=== PATIENT | male | born 1965 | race African-American/Black ===

== ENCOUNTER 2019-09-21 12:15 | Emergency (ER) | payer MEDICAID, OTHER ==
[~2019-09-21] VITALS: Ht 175.3 cm; Wt 86.3 kg
[2019-09-21 12:57] VITALS: BP 130/59
[2019-09-21] MEDS ORDERED: ACETAMINOPHEN 325MG TABLET PO ONE (15:00)
== END 2019-09-21 15:28 | disposition home or self-care (01) ==
LOC: ER 14:46
DX: L02.11 Cutaneous abscess of neck (principal); J45.909 Unspecified asthma, uncomplicated
CPT/HCPCS: 99282

== ENCOUNTER 2022-09-01 11:47 | Emergency (ER) | payer MEDICAID ==
[~2022-09-01] VITALS: Ht 175.3 cm; Wt 82.0 kg
[2022-09-01 11:49] VITALS: BP 148/89
== END 2022-09-01 13:53 | disposition home or self-care (01) ==
LOC: ER 11:49
DX: R10.13 Epigastric pain (principal); J45.909 Unspecified asthma, uncomplicated
CPT/HCPCS: 99283

== ENCOUNTER 2022-11-25 23:47 | Emergency (ER) | payer MEDICAID, OTHER ==
[~2022-11-25] VITALS: Ht 175.3 cm; Wt 74.6 kg
[2022-11-26] MEDS ORDERED: SULFAMETHOXAZOLE/TRIMETHOPRIM 800/160MG TABLET PO ONE (03:45)
[2022-11-26] MEDS ORDERED: CEPHALEXIN 250MG CAPSULE PO ONE (03:45)
[2022-11-26] MEDS ORDERED: LIDOCAINE HCL/PF 1% 10 MG/ML 5ML VIAL INFIL ONE (03:45)
[2022-11-26] MEDS ORDERED: IBUPROFEN 600MG TABLET PO ONE (03:45)
[2022-11-26] MEDS ORDERED: TETANUS, DIPHTHERIA, PERTUSSIS VAC/PF 0.5ML (>10YR OLD) IM ONE (03:45)
[2022-11-26] MEDS ORDERED: SULF1TAB48 MT (03:53)
[2022-11-26] MEDS ORDERED: CEPH500C2 MT (03:53)
[2022-11-26] MEDS ORDERED: IBUP-2029 MT (03:53)
[2022-11-26 04:29] VITALS: BP 120/76
== END 2022-11-26 04:32 | disposition home or self-care (01) ==
LOC: ER 23:47
DX: L02.01 Cutaneous abscess of face (principal); J45.909 Unspecified asthma, uncomplicated; I49.9 Cardiac arrhythmia, unspecified
CPT/HCPCS: 10060; 90471; 90715; 93005; 99284; Z7610

== ENCOUNTER 2023-06-27 03:00 | Emergency (ER) | payer MEDICAID, OTHER ==
[~2023-06-27] VITALS: Ht 175.3 cm; Wt 78.0 kg
[~2023-06-27 03:00] MED LIST: CEPH500C2 MT; IBUP-2029 MT; SULF1TAB48 MT
[2023-06-27] MEDS ORDERED: PREDNISONE 20MG TABLET PO STA (03:09)
[2023-06-27] MEDS ORDERED: IPRATROPIUM BROMIDE (0.02%) 0.5MG/2.5ML NEB HHN STA (03:09)
[2023-06-27] MEDS ORDERED: ALBUTEROL (0.083%) 2.5MG/3ML NEB HHN STA (03:09)
[2023-06-27 03:30] VITALS: PULSE 80; RESP 29; O2SAT 99
[2023-06-27] MEDS ORDERED: P20 MT (04:30)
[2023-06-27] MEDS ORDERED: ALBU18HF2 IH (04:30)
[2023-06-27] MEDS ORDERED: ALBU2.5V13 NEB (04:30)
[2023-06-27 04:35] VITALS: BP 122/82; PULSE 72; RESP 16; TEMP 98.8
== END 2023-06-27 04:38 | disposition home or self-care (01) ==
LOC: ER 03:00
DX: J45.901 Unspecified asthma with (acute) exacerbation (principal); F17.290 Nicotine dependence, other tobacco product, uncomplicated; Z91.013 Allergy to seafood
CPT/HCPCS: 71045; 94640; 99283; 99406; J7512; Z7610 ×3

== ENCOUNTER 2025-05-29 09:22 | Emergency (ER) | payer MEDICAID ==
[~2025-05-29] VITALS: Ht 175.3 cm; Wt 78.0 kg
[~2025-05-29 09:22] MED LIST changes: +ALBU18HF2 IH; +ALBU2.5V13 NEB; +IBUP-1455 MT; -IBUP-2029 MT; +P20 MT
[2025-05-29 09:37] VITALS: TEMP 36.7; O2SAT 98
[2025-05-29] MEDS ORDERED: CEPH500C2 MT (10:09)
[2025-05-29] MEDS ORDERED: SULF1TAB48 MT (10:09)
[2025-05-29 10:20] VITALS: BP 118/92; PULSE 79; RESP 14; O2SAT 100
[2025-07-10] MEDS ORDERED: P20 MT (08:17)
[2025-07-10] MEDS ORDERED: ALBU18HF2 IH (08:17)
[2025-07-10] MEDS ORDERED: ALBU2.5V13 NEB (08:17)
[2025-07-10] MEDS ORDERED: FLUT1DIS3 INH (08:17)
== END 2025-05-29 10:32 | disposition home or self-care (01) ==
LOC: ER 09:22
DX: L73.9 Follicular disorder, unspecified (principal); J45.909 Unspecified asthma, uncomplicated; Z91.013 Allergy to seafood
CPT/HCPCS: 99283